=== PATIENT | female | born 1985 | race Caucasian/White ===

== ENCOUNTER 2018-07-28 08:11 | Emergency (ER) | payer MEDICAID ==
[2018-07-28 08:33] VITALS: BP 118/74
--- NOTE | 2018-07-28 08:57 | EDM.PDOC ---
ED HPI GENERAL MEDICAL PROBLEM - General Chief Complaint: [facility]IMAL [facility]ER Problem Stated Complaint: CAME OPEN Time Seen by Provider: 07/28/18 08:30 Source of Information: Reports: Patient, Family History Limitations: Reports: No Limitations - History of Present Illness INITIAL COMMENTS - FREE TEXT/NARRATIVE: 32-year-old female had a 4 days ago, lauren removed yesterday at a postoperative visit and overnight the wound opened up and started bleeding slightly. She called her surgical department in [place] where she had her surgery and she was told to come to the emergency room. Onset: Unknown/Unsure (Wound opened sometime overnight) Lower Abdomen Pain Score (Numeric/FACES): 7 - Related Data Allergies Allergy/AdvReac Type Severity Reaction Status Date / Time adhesive tape Allergy Blisters Verified 05/24/16 11:00 morphine Allergy Swelling Verified 05/24/16 11:00 Sulfa (Sulfonamide Allergy Rash Verified 05/24/16 11:00 Antibiotics) Home Meds: Home Meds Acetaminophen/Butalbital/Caff [Fioricet 325-50-40 MG] 1 each PO ASDIRECTED PRN 05/03/16 [History] Pnv No.95/Ferrous Fum/Folic AC [ Caplet] 1 each PO DAILY 07/28/18 [ History] Past Medical History - Past Health History Medical/Surgical History: Denies Medical/Surgical History Other HEENT History: ear infections Other Cardiovascular History: WPW Other Gastrointestinal History: exploratoy lap ANIMAL KILLER History: Reports: Other ANIMAL KILLER History: ovarian cysts - Past Surgical History Other Cardiovascular Surgeries/Procedures: had an ablation for WPW states "it didn't work" Female Surgical History: Reports: Section Social & Family History - Tobacco Use Smoking Status *Q: Current Every Day Smoker Years of Tobacco use: 12 Packs/Tins Daily: 0.5 - Caffeine Use Caffeine Use: Reports: Soda - Recreational Drug Use Recreational Drug Use: No ED ROS GENERAL - Review of Systems Review Of Systems: See Below Constitutional: Denies: Fever, Chills Respiratory: Denies: Shortness of Breath GI/Abdominal: Reports: Abdominal Pain (Some pain around the incision). Denies: Nausea, Vomiting Skin: Reports: Bruising (Perioperative bruising) ED EXAM, SKIN/RASH Exam: See Below Exam Limited By: No Limitations General Appearance: Alert, No Apparent Distress Respiratory/Chest: No Respiratory Distress GI/Abdominal: Other (The transverse surgical incision is open, there is some bruising just above the incision but no erythema.) Skin: Warm, Dry, Other (The wound was opened and a few clots removed and the wound clean. It was then stapled closed per the recommendations of her ANIMAL KILLER surgeon.) Course - Vital Signs Last Recorded V/S: Last Vital Signs Temp 99.8 F 07/28/18 08:32 Pulse 83 07/28/18 08:32 Resp 16 07/28/18 08:32 BP 118/74 07/28/18 08:32 Pulse Ox 98 07/28/18 08:32 - Re-Assessments/Exams Free Text/Narrative Re-Assessment/Exam: 07/28/18 08:55 After phone consultation with Dr. Marc, her ANIMAL KILLER surgeon, he recommended replacing the lauren. The wound was cleaned, there were a few small clots removed and then using nurse assistance to invert the edges lauren were replaced under sterile conditions. I recommended she call ANIMAL KILLER on Sunday to discuss her recheck in the next 3-5 days. She can return sooner if there is concerns of infection. Departure - Departure Time of Disposition: :09 Disposition: Home, Self-Care 01 Condition: Good Clinical Impression: Wound dehiscence, , condition - Discharge Information Instructions: Wound Dehiscence Referrals: Chiara Person PA [Primary Care Provider] - Forms: ED Department Discharge Care Plan Goals: Continue keeping the wound clean and protected, and call ANIMAL KILLER on Sunday to discuss a recheck appointment time. Return sooner if concerns of infection.
== END 2018-07-28 09:10 | disposition home or self-care (01) ==
LOC: JP.ED 08:11
DX: O90.0 Disruption of cesarean delivery wound (principal); O99.335 Smoking (tobacco) complicating the puerperium; F17.210 Nicotine dependence, cigarettes, uncomplicated; Z88.5 Allergy status to narcotic agent; Z88.2 Allergy status to sulfonamides; Z91.09 Other allergy status, other than to drugs and biological substances
CPT/HCPCS: 99283

== ENCOUNTER 2018-09-03 08:12 | Day surgery (SDC) | payer MEDICAID ==
[~2018-09-03 08:12] MED LIST: Bupivacaine 0.5%/EPINEPHrine 1:200,000 50 ML MDV ONE
[2018-09-03] MEDS ORDERED: Rocuronium 50 MG/5 ML Vial ONE (08:15)
[2018-09-03] MEDS ORDERED: Midazolam 1 MG/ML 2 ML SDV ONE (08:15)
[2018-09-03] MEDS ORDERED: Scopolamine 1.5 MG Transdermal Patch TOP ONE (08:15)
[2018-09-03] MEDS ORDERED: Acetaminophen 500 MG Tab PO ONE (08:15)
[2018-09-03] MEDS ORDERED: fentaNYL 250 MCG/5 ML SDV ONE (08:15)
[2018-09-03] MEDS ORDERED: Albuterol/Ipratropium 3.0-0.5 MG/3 ML Neb Soln NEB ONE (08:15)
[2018-09-03] MEDS ORDERED: Neostigmine Methylsulfate 1 MG/ML 5 ML Syringe ONE (08:15)
[2018-09-03] MEDS ORDERED: cefOXitin 2 GM in Sodium Chloride 0.9% 50 ML IV ONE (08:15)
[2018-09-03] MEDS ORDERED: Ondansetron 4 MG/2 ML SDV ONE (08:15)
[2018-09-03] MEDS ORDERED: Dexamethasone 4 MG/ML SDV ONE (08:15)
[2018-09-03] MEDS ORDERED: Dextrose 5%-Lactated Ringers 1,000 ML IV SCH (08:15)
[2018-09-03] MEDS ORDERED: Propofol 200 MG/20 ML SDV ONE (08:15)
[2018-09-03] MEDS ORDERED: Glycopyrrolate 0.2 MG/ML 5 ML MDV ONE (08:15)
[2018-09-03] MEDS ORDERED: Naloxone 0.4 MG/ML SDV ONE (08:23)
[2018-09-03] MEDS ORDERED: Ketamine 500 MG/5 ML MDV IV SCH (10:00)
[2018-09-03] MEDS ORDERED: HYDROmorphone 0.5 MG/0.5 ML Syringe IVPUSH PRN (12:03)
[2018-09-03] MEDS ORDERED: HYDROmorphone 1 MG/ML Syringe IV PRN (12:03)
[2018-09-03] MEDS ORDERED: Ondansetron 4 MG/2 ML SDV IVPUSH PRN (12:05)
[2018-09-03] MEDS ORDERED: Cyclobenzaprine 10 MG Tab PO PRN (12:12)
[2018-09-03] MEDS ORDERED: diphenhydrAMINE 25 MG Cap PO PRN (12:13)
[2018-09-03] MEDS: Acetaminophen/HYDROcodone 325-5 MG Tab PO PRN ×4 (12:14→21:48)
[2018-09-03] MEDS ORDERED: Pantoprazole 40 MG Vial IVPUSH SCH (14:00)
[2018-09-03] MEDS: Escitalopram 20 MG Tab PO SCH (14:22)
[2018-09-03] MEDS: cefOXitin 2 GM in Sodium Chloride 0.9% 50 ML IV SCH ×2 (15:19→21:48)
[2018-09-03] MEDS ORDERED: diphenhydrAMINE 25 MG Cap PO ONE (21:30)
[2018-09-04] MEDS: cefOXitin 2 GM in Sodium Chloride 0.9% 50 ML IV SCH (03:40)
[2018-09-04] MEDS: Acetaminophen/HYDROcodone 325-5 MG Tab PO PRN ×3 (03:40→11:19)
[2018-09-04] MEDS ORDERED: Mometasone Furoate Powder 220 MCG/Puff 14 Dose Inhaler INH SCH (07:30)
[2018-09-04 07:52] VITALS: BP 114/66; PULSE 61
[2018-09-04] MEDS: Escitalopram 20 MG Tab PO SCH (09:24)
--- NOTE | 2018-09-04 09:53 | DISCH ---
ADMISSION DIAGNOSES: 1. Chronic biliary dyskinesia. 2. Right upper quadrant abdominal pain. 3. Status post Jacob-en-Y gastric bypass surgery. 4. Unspecified surgical malabsorption. 5. B12 deficiency. DISCHARGE DIAGNOSIS: Laparoscopic cholecystectomy for biliary dyskinesia. Date of surgery: 09/03/2018. Surgeon: Ernesto Mishra MD. HISTORY: Papito Leonardo is a 32-year-old female with right upper quadrant abdominal pain, postprandial nausea and bloating. After preoperative evaluation and discussion of possible risks and possible complications, she wished to proceed with surgical procedure. HOSPITAL COURSE: Papito had her surgery on 09/03/2018. She had no operative complications and she was able to be discharged to home on 09/04/2018. PHYSICAL EXAMINATION: GENERAL: Papito Leonardo is a 32-year-old female. Alert, orientated. VITAL SIGNS: Height is 5 feet 3 inches, weight is 266 pounds, BMI is 47.2. TPR 97.4, 61, 18, blood pressure is 114/66. HEENT: Negative. NECK: Supple. HEART: Regular rate and rhythm. LUNGS: Clear. ABDOMEN: Dressings dry and intact. LOR drain will be discontinued, draining a light red drainage. Abdominal binder is on. EXTREMITIES: Without peripheral edema. DISPOSITION: Discharged to home. CONDITION: Stable and improving. FOLLOWUP APPOINTMENT: Coty Rodriguez PA-C, on 09/11/2018 at 10 a.m. HOME MEDICATIONS: [place] 5/325 mg one q.6 hours p.r.n. pain, #28. She is to resume her home medication of Fioricet 325/50/40 one p.r.n. headache; ascorbic acid 500 mg daily; B12 1000 mcg oral daily; Flexeril 10 mg oral daily; Lexapro 20 mg oral daily; ferrous sulfate 325 mg oral daily; Arnuity Ellipta 100 mcg inhalation daily; multivitamin one daily; caplet one daily; Benadryl 50 mg oral at bedtime. DIET: Usual diet as tolerated. Drink 8 to 10 glasses of water a day. ACTIVITY: No lifting greater than 10 pounds for 2 weeks. Walk at least 6 times daily. Driving: Do not drive for 1 week and while on pain medication. May shower. DISCHARGE INSTRUCTIONS: Notify provider if any fever, increased pain, swelling, redness, nausea, vomiting. Keep site clean and dry. Wear abdominal binder for 2 weeks as needed. Use incentive spirometer 10 times every hour while awake for 1 week.
[2018-09-04] MEDS ORDERED: Pantoprazole 40 MG Delayed-Release Granules 1 Packet PO SCH (16:30)
--- NOTE | 2018-09-09 13:08 | OR ---
DATE OF PROCEDURE: 09/03/2018 PREOPERATIVE DIAGNOSIS: Biliary dyskinesia. POSTOPERATIVE DIAGNOSES: 1. Biliary dyskinesia. 2. Incarcerated umbilical hernia. OPERATIVE PROCEDURE: Diagnostic laparoscopy with, 1. Laparoscopic cholecystectomy (84455). 2. Repair of incarcerated umbilical hernia (54908). ANESTHESIA: General. INDICATION FOR PROCEDURE: This is a 32-year-old presenting with some ongoing upper abdominal pain. A CCK-stimulated HIDA scan was obtained which showed normal ejection fraction remarkably, but the CCK injection caused a quite exact reproduction of the patient's episodes of upper abdominal pain and nausea, and given this, she is to undergo a laparoscopic cholecystectomy. Potential risks of the procedure including bleeding, infection, injury to underlying viscera, possible persistence of the symptoms postoperatively were all reviewed and the patient wishes to proceed. DETAILS OF PROCEDURE: The patient was taken to the operating room, and after general endotracheal anesthesia was induced, the abdomen was prepped and draped. Initially examination of the umbilical area showed the fairly broad-based nonreducible umbilical hernia. Transverse subumbilical incision was made and the peritoneal cavity was then entered after dissection down to the hernia sac. The defect easily admitted the 12 mm trocar at the fascia level and the balloon inflated to 15 mmHg pressure with CO2. Following this, a 12 mm epigastric trocar was placed along with a 5 mm right upper quadrant trocar and the abdomen examined. As expected, the patient was having distended stomach, edematous appearing gallbladder. No other specific abnormalities were noted. Gallbladder retracted anteriorly and laterally and dissection began on the gallbladder neck with Harmonic scalpel and continued around the gallbladder neck and cystic duct junction. The gallbladder neck and cystic duct junction were then well delineated as was the adjacent cystic artery. Both structures were clipped 3 times proximally and once distally and divided. The gallbladder was then dissected off the gallbladder bed using Harmonic scalpel and delivered through the epigastric trocar site. The gallbladder had small amount of cholesterol within in and a "strawberry gallbladder" mucosal appearance consistent with mucosal cholesterolosis. The area of dissection was inspected. Drain was felt not to be necessary at this point, and the camera port was then brought out to the epigastric site. The umbilical hernia was then repaired with a series of 0 Ethibond sutures placed with the laparoscopic suture passer. They were placed such that the closure appeared with a transverse orientation. Once these were in place, the epigastric trocar site was also closed with 0 Vicryl stitch and the trocars were removed. The peritoneal cavity was deflated and incisions closed with 4-0 Vicryl skin stitch. The patient was taken to the recovery room in satisfactory condition. There were no evident complications. Ernesto Mishra MD /[id number]
== END 2018-09-04 12:01 | disposition home or self-care (01) ==
LOC: JP.SDS 08:12 → JP.MS 11:30 → JP.SDS 09-04 12:01
PROVIDERS: ATTEND Surgery
DX: K81.1 Chronic cholecystitis (principal); K42.0 Umbilical hernia with obstruction, without gangrene; I45.6 Pre-excitation syndrome; J45.909 Unspecified asthma, uncomplicated; E53.8 Deficiency of other specified B group vitamins; E55.9 Vitamin D deficiency, unspecified; K91.2 Postsurgical malabsorption, not elsewhere classified; F32.9 Major depressive disorder, single episode, unspecified; E66.01 Morbid (severe) obesity due to excess calories; Z68.42 Body mass index [BMI] 45.0-49.9, adult; Z98.84 Bariatric surgery status; Z79.51 Long term (current) use of inhaled steroids; Z79.899 Other long term (current) drug therapy
CPT/HCPCS: 36415; 47562; 81025; 82247; 84075; 85025; 94640; A9270; C9113; J0171; J0694; J1100; J2310; J2405; J2704; J2710; J2795; J3010; J3490; J7042; J7050; 88302; 88304; J2250; J7620-GY

== ENCOUNTER 2019-02-25 05:26 | Day surgery (SDC) | payer MEDICAID ==
[2019-02-25] MEDS ORDERED: Dextrose 5%-Lactated Ringers 1,000 ML IV SCH (06:30)
[2019-02-25] MEDS ORDERED: fentaNYL 100 MCG/2 ML SDV ONE (07:07)
[2019-02-25] MEDS ORDERED: Midazolam 1 MG/ML 2 ML SDV ONE (07:07)
[2019-02-25] MEDS ORDERED: Propofol 200 MG/20 ML SDV ONE (07:07)
[2019-02-25 08:49] VITALS: BP 90/49; PULSE 82
--- NOTE | 2019-03-06 13:58 | OR ---
DATE OF PROCEDURE: 02/25/2019 SURGEON: Ernesto Mishra MD PREOPERATIVE DIAGNOSIS: Right upper quadrant pain with MRI suggestive of possible colitis involving transverse colon. POSTOPERATIVE DIAGNOSIS: Colonoscopy showing no gross abnormalities. OPERATIVE PROCEDURE: Flexible colonoscopy with random biopsies to rule out microscopic colitis. ANESTHESIA: IV sedation. INDICATIONS FOR PROCEDURE: The patient is status post Jacob-en-Y gastric bypass in 2010. She underwent a cholecystectomy on 09/03/2018. Initially, she did well, but now she is having some recurrent symptoms suggestive of biliary disease or other pathology in the right upper quadrant. An MRI was obtained, which did not show any biliopancreatic pathology, but it was suggestive of possible colitis involving the transverse colon. She is to undergo colonoscopy with biopsies as indicated at this time. Potential risks including bleeding and perforation were discussed, and the patient wishes to proceed. DETAILS OF PROCEDURE: The patient was taken to the operating room and placed in a left lateral decubitus position. IV sedation was administered, after which the initial digital rectal exam was performed and was unremarkable. Colonoscope was eventually passed to the cecum. Retroflexion within the rectum, which revealed uncomplicated hemorrhoidal columns. To the level of the cecum, no abnormalities were noted, particularly there was no gross inflammation or other problems identified in the area of the transverse colon or elsewhere on the examination. Multiple random biopsies were obtained from the area of the transverse colon to rule out microscopic colitis. No bleeding from the biopsy sites was seen and procedure was then concluded. The patient was taken to the recovery room in satisfactory condition. If the patient's symptoms persist, one might consider a diagnostic laparoscopy to rule out problems of adhesions and/or a gastroenterology referral. It is possible though with the sphincter of Oddi dysfunction, that would be a quite difficult diagnosis to establish given her gastric bypass status and if that consideration was given, she should probably be referred to somewhere such as [facility] with good experience of transgastric access for ERCP status post gastric bypass. Ernesto Mishra MD /[id number]
== END 2019-02-25 08:55 | disposition home or self-care (01) ==
LOC: JP.SDS 05:26
PROVIDERS: ATTEND Surgery
DX: R10.11 Right upper quadrant pain (principal); K64.9 Unspecified hemorrhoids; E66.01 Morbid (severe) obesity due to excess calories; Z68.43 Body mass index [BMI] 50.0-59.9, adult; Z98.84 Bariatric surgery status; Z90.49 Acquired absence of other specified parts of digestive tract
CPT/HCPCS: 45380; 88305; J2250; J2704; J3010; J7121

== ENCOUNTER 2019-06-02 06:11 | Day surgery (SDC) | payer MEDICAID ==
[2019-06-02] MEDS ORDERED: Cyanocobalamin (Vitamin B12) 1,000 MCG/ML SDV IM ONE (06:30)
[2019-06-02] MEDS ORDERED: Lactated Ringers 1,000 ML IV ONE (06:30)
[2019-06-02] MEDS ORDERED: Glycopyrrolate 0.2 MG/ML 2 ML SDV IVPUSH ONE (07:00)
[2019-06-02] MEDS ORDERED: Midazolam 1 MG/ML 2 ML SDV ONE (07:06)
[2019-06-02] MEDS ORDERED: Propofol 200 MG/20 ML SDV ONE (07:06)
[2019-06-02] MEDS ORDERED: fentaNYL 100 MCG/2 ML SDV ONE (07:06)
[2019-06-02] MEDS ORDERED: MVI, Adult with Vitamin K 10 ML, Thiamine 200 MG, Chromium/Copper/Mang/Selen/Zn 1 ML in... IV ONE ×4 (07:30)
[2019-06-02] MEDS ORDERED: Acetaminophen 325 MG Tab PO ONE (08:18)
[2019-06-02] MEDS ORDERED: Acetaminophen 500 MG Tab PO ONE (08:19)
[2019-06-02] MEDS ORDERED: diphenhydrAMINE 50 MG/ML SDV IVPUSH PRN (08:31)
[2019-06-02] MEDS ORDERED: Famotidine 20 MG/2 ML SDV IVPUSH PRN (08:31)
[2019-06-02] MEDS ORDERED: Hydrocortisone Sodium Succinate 100 MG/2 ML SDV IVPUSH PRN (08:31)
[2019-06-02] MEDS ORDERED: Sodium Chloride 0.9% 1,000 ML IV SCH ×2 (08:45→10:30)
[2019-06-02 11:00] VITALS: BP 140/58; PULSE 88
--- NOTE | 2019-06-04 14:24 | OR ---
DATE OF PROCEDURE: 06/02/2019 SURGEON: Ernesto Mishra MD PREOPERATIVE DIAGNOSIS: Persistent epigastric pain. POSTOPERATIVE DIAGNOSIS: Persistent marginal ulcer refractory to ongoing proton pump inhibitor use. OPERATIVE PROCEDURES: Upper gastrointestinal endoscopy with biopsies of gastric pouch for CLOtest (81249). ANESTHESIA: IV sedation. INDICATION FOR PROCEDURE: This is a 33-year-old female who, in 2010, had a Jacob-en-Y gastric bypass performed by Dr. Segovia. She presents now with ongoing epigastric pain despite being on b.i.d. omeprazole dosing. The plan is to proceed with upper GI endoscopy with biopsies as indicated. Potential risks including bleeding and perforation were discussed, and the patient wishes to proceed. DETAILS OF PROCEDURE: The patient was taken to the operating room and placed in a left lateral decubitus position. IV sedation was administered, after which the upper GI endoscope was passed orally through the length of the esophagus, into the gastric pouch and from there through the gastrojejunostomy roughly 20 cm into the Jacob limb. Findings included normal hypopharynx, larynx, upper esophageal sphincter, and esophageal body. At the EG junction, no significant inflammation was noted. The patient was, however, noted to have a very large gastric pouch. This was measuring 9 cm from the gastrojejunostomy to the mucosal EG junction. This was associated with some persistent marginal ulcer formation in the area of the jejunum medially adjacent to the gastrojejunostomy. Beyond that, the findings normalized. At this point, biopsies were obtained from the gastric pouch and sent for CLOtest for H pylori. Minimal bleeding from the biopsy sites was seen, and the procedure then concluded. The patient was taken to the recovery room in satisfactory condition. Following the patient recovering from anesthesia, the situation was discussed with the patient and mother, and they wished to proceed with a partial gastrectomy on 06/05/2019. This most likely can be done laparoscopically. The patient's underlying problem at this point has to do with having a very large gastric pouch, which was not providing enough despite proton pump inhibitor as detailed above and persistent ulcer problems, and the solution of that is to remove most of the remaining stomach in contact with the Jacob- en-Y anastomosis and reconstruct that anastomosis as well. The potential risks were reviewed with the patient and will be reviewed again preoperatively, and she wishes to proceed. Ernesto Mishra MD /[id number]
== END 2019-06-02 11:12 | disposition home or self-care (01) ==
LOC: JP.SDS 06:11
PROVIDERS: ATTEND Surgery
DX: K28.9 Gastrojejunal ulcer, unspecified as acute or chronic, without hemorrhage or perforation (principal); T47.1X5A Adverse effect of other antacids and anti-gastric-secretion drugs, initial encounter; J45.909 Unspecified asthma, uncomplicated; E66.01 Morbid (severe) obesity due to excess calories; Z79.899 Other long term (current) drug therapy; Z98.84 Bariatric surgery status; Z93.1 Gastrostomy status; Z68.43 Body mass index [BMI] 50.0-59.9, adult
CPT/HCPCS: 43239; 81025; 87081; A9270; J2250; J2704; J3010; J3411; J3420; J3490; J7030; J7050; J7120; Q0138

== ENCOUNTER 2019-06-05 05:34 | Inpatient (IN) | payer MEDICAID ==
[2019-06-05] MEDS ORDERED: Acetaminophen 500 MG Tab PO ONE (05:45)
[2019-06-05] MEDS ORDERED: Gabapentin 300 MG Cap PO ONE (05:45)
[2019-06-05] MEDS ORDERED: Scopolamine 1.5 MG Transdermal Patch TOP ONE (06:02)
[2019-06-05] MEDS: Dextrose 5%-Lactated Ringers 1,000 ML IV SCH ×4 (06:25→21:40)
[2019-06-05] MEDS ORDERED: cefOXitin 2 GM in Sodium Chloride 0.9% 50 ML IV ONE (06:45)
[2019-06-05] MEDS ORDERED: Levalbuterol HCl 1.25 MG/3 ML Neb NEB ONE (07:00)
[2019-06-05] MEDS ORDERED: Succinylcholine 200 MG/10 ML MDV ONE (07:31)
[2019-06-05] MEDS ORDERED: Rocuronium 50 MG/5 ML Vial ONE (07:31)
[2019-06-05] MEDS ORDERED: Neostigmine Methylsulfate 1 MG/ML 5 ML Syringe ONE (07:31)
[2019-06-05] MEDS ORDERED: Glycopyrrolate 0.2 MG/ML 5 ML MDV ONE (07:31)
[2019-06-05] MEDS ORDERED: Propofol 200 MG/20 ML SDV ONE (07:31)
[2019-06-05] MEDS ORDERED: Ondansetron 4 MG/2 ML SDV ONE (07:31)
[2019-06-05] MEDS ORDERED: Dexamethasone 4 MG/ML SDV ONE (07:31)
[2019-06-05] MEDS ORDERED: fentaNYL 250 MCG/5 ML SDV ONE ×2 (07:32→08:10)
[2019-06-05] MEDS ORDERED: Ketamine 50 MG in Sodium Chloride 0.9% 49.5 ML IV SCH (07:45)
[2019-06-05] MEDS ORDERED: Ketamine 500 MG/5 ML MDV IV SCH (07:45)
[2019-06-05] MEDS ORDERED: Magnesium Sulfate 6.5 GM in Sodium Chloride 0.9% 250 ML IV ONE (07:45)
[2019-06-05] MEDS: cefOXitin 2 GM Vial ONE ×2 (08:48→09:20)
[2019-06-05] MEDS ORDERED: Labetalol 20 MG/4 ML Syringe ONE (09:03)
[2019-06-05] MEDS ORDERED: hydrOXYzine HCL 100 MG/2 ML SDV IM ONE (09:49)
[2019-06-05] MEDS ORDERED: Lactated Ringers 1,000 ML ONE (10:33)
[2019-06-05] MEDS ORDERED: Ondansetron 4 MG/2 ML SDV IVPUSH PRN ×2 (10:55→11:26)
[2019-06-05] MEDS ORDERED: Calcium Gluconate 10% 1 GM/10 ML SDV IVPUSH PRN (11:26)
[2019-06-05] MEDS ORDERED: Acetaminophen 500 MG Tab PO PRN (11:26)
[2019-06-05] MEDS ORDERED: diphenhydrAMINE 50 MG/ML SDV IVPUSH PRN (11:26)
[2019-06-05] MEDS ORDERED: Metoclopramide 10 MG/2 ML SDV IVPUSH PRN (11:26)
[2019-06-05] MEDS ORDERED: hydrOXYzine HCL 100 MG/2 ML SDV IM PRN (11:26)
[2019-06-05] MEDS ORDERED: Labetalol 20 MG/4 ML Syringe IVPUSH PRN (11:26)
[2019-06-05] MEDS ORDERED: traZODone 50 MG Tab PO PRN (11:29)
[2019-06-05] MEDS ORDERED: Acetaminophen 500 MG Tab PO SCH (11:30)
[2019-06-05] MEDS: HYDROmorphone 1 MG/ML Syringe IV PRN ×3 (11:34→19:07)
[2019-06-05] MEDS ORDERED: XOPENEX HFA INHALER INH PRN (12:03)
[2019-06-05] MEDS: Acetaminophen 500 MG Tab PO SCH ×2 (13:27→21:36)
[2019-06-05] MEDS: Gabapentin 250 MG/5 ML Solution ML 470 ML Bottle PO SCH ×2 (13:28→21:37)
[2019-06-05] MEDS: cefOXitin 2 GM in Sodium Chloride 0.9% 50 ML IV SCH ×2 (13:28→19:07)
[2019-06-05] MEDS ORDERED: Pantoprazole 40 MG Vial IVPUSH SCH (14:00)
[2019-06-05] MEDS: oxyCODONE 5 MG Tab PO PRN ×2 (15:52→23:20)
[2019-06-05] MEDS: Heparin Sodium 5,000 Units/ML Vial SUBCUT SCH (15:54)
[2019-06-05] MEDS ORDERED: MVI, Adult with Vitamin K 10 ML, Thiamine 200 MG, Chromium/Copper/Mang/Selen/Zn 1 ML in... IV SCH ×4 (16:00)
[2019-06-05] MEDS: HYDROmorphone 0.5 MG/0.5 ML Syringe IVPUSH PRN (16:26)
[2019-06-05] MEDS: Cyclobenzaprine 10 MG Tab PO PRN (18:53)
[2019-06-06] MEDS: cefOXitin 2 GM in Sodium Chloride 0.9% 50 ML IV SCH ×2 (01:46→07:32)
[2019-06-06] MEDS: HYDROmorphone 0.5 MG/0.5 ML Syringe IVPUSH PRN (02:31)
[2019-06-06] MEDS: Dextrose 5%-Lactated Ringers 1,000 ML IV SCH ×3 (03:51→14:44)
[2019-06-06] MEDS ORDERED: Iopamidol 612 MG/ML 50 ML SDV PO ONE (03:51)
[2019-06-06] MEDS: Heparin Sodium 5,000 Units/ML Vial SUBCUT SCH ×2 (03:53→15:58)
[2019-06-06] MEDS: oxyCODONE 5 MG Tab PO PRN ×3 (06:13→19:13)
[2019-06-06] MEDS: Acetaminophen 500 MG Tab PO SCH ×3 (06:13→21:05)
[2019-06-06] MEDS ORDERED: Ondansetron 4 MG Tab.DIS PO PRN (07:17)
[2019-06-06] MEDS: Cyclobenzaprine 10 MG Tab PO PRN (07:33)
[2019-06-06] MEDS ORDERED: hydrOXYzine HCl 25 MG Tab PO PRN (07:37)
[2019-06-06] MEDS: Bisacodyl 5 MG Tab PO SCH ×2 (08:55→21:05)
[2019-06-06] MEDS: Celecoxib 200 MG Cap PO SCH ×2 (08:55→21:05)
[2019-06-06] MEDS: Docusate Sodium 100 MG Cap PO SCH ×2 (08:55→21:05)
[2019-06-06] MEDS: Pantoprazole 40 MG Delayed-Release Granules 1 Packet PO SCH (08:56)
[2019-06-06] MEDS: SCOPOLAMINE PATCH CHECK TOP SCH (08:56)
[2019-06-06] MEDS: Vilazodone 20 MG Tab PO SCH (08:56)
[2019-06-06] MEDS: Gabapentin 250 MG/5 ML Solution ML 470 ML Bottle PO SCH ×3 (09:03→21:05)
[2019-06-06] MEDS ORDERED: Sodium Ferric Gluconate Cmplex 250 MG in Sodium Chloride 0.9% 100 ML IV ONE (10:00)
--- NOTE | 2019-06-06 11:01 | PN ---
DATE OF SERVICE: 06/06/2019 SUBJECTIVE: Papito is postoperative day #1. Upper GI this morning was normal. She has been afebrile. Oral intake 480, urine output 3800. LOR put out 85 mL of a light red drainage. REVIEW OF SYSTEMS: Remainder of review of systems negative for any pertinent positives and negatives. OBJECTIVE: GENERAL: Papito Leonardo is a 33-year-old female. She is alert and orientated. VITAL SIGNS: TPR at 0700, 97.8; 72; 16; blood pressure 119/76. HEENT: Negative. NECK: Supple. HEART: Regular rate and rhythm. LUNGS: Clear. ABDOMEN: Dressings dry and intact. Abdominal binder is on. LOR drain as above. EXTREMITIES: SCDs are on and there is no peripheral edema. ASSESSMENT: Laparoscopic partial gastrectomy with Jacob-en-Y gastrojejunostomy, small bowel resection at the jejunojejunostomy, secondary enterostomy, and reestablish of the Jacob-en-Y small bowel anatomy for persistent morbid obesity secondary to large gastric pouch and strictures at the jejunojejunostomy and hepatomegaly. Date of surgery: 06/05/2019. Surgeon: Ernesto Mishra MD. PLAN: 1. Communication order written: To have 3 med cups at bedside and to drink 1 every 20 minutes or 3 per hour and record at bedside to make sure the patient gets adequate fluids. 2. Dressing off, may shower. 3. Step 2 gastric bypass diet with no cereal. 4. Decrease IV to 100 mL per hour. 5. Dulcolax 10 mg tablets p.o. b.i.d. Scheduled stop when the patient has a bowel movement. 6. Colace 100 mg p.o. b.i.d. 7. Zofran ODT 4 mg every 4 hours p.r.n. nausea. 8. Discontinue IV Dilaudid. 9. Discontinue continuous pulse ox and cardiac monitoring. 10.Continue good pulmonary toilet. 11.We will evaluate p.r.n. or in a.m. Coty Rodriguez PA-C /[id number]
--- NOTE | 2019-06-06 14:15 | CR ---
UGI Limited HISTORY: Postbariatric surgery FINDINGS: Patient swallowed water-soluble contrast. Upright views of the abdomen show no evidence of extravasation or obstruction. IMPRESSION: Status post bariatric surgery No extravasation or obstruction seen
[2019-06-06] MEDS ORDERED: MVI, Adult with Vitamin K 10 ML, Thiamine 200 MG, Chromium/Copper/Mang/Selen/Zn 1 ML in... IV SCH ×4 (16:00)
[2019-06-07] MEDS: oxyCODONE 5 MG Tab PO PRN ×2 (02:24→08:49)
[2019-06-07] MEDS: Acetaminophen 500 MG Tab PO SCH (05:01)
[2019-06-07] MEDS: Heparin Sodium 5,000 Units/ML Vial SUBCUT SCH (05:01)
[2019-06-07 07:37] VITALS: BP 127/85; PULSE 75
[2019-06-07] MEDS: Celecoxib 200 MG Cap PO SCH (08:47)
[2019-06-07] MEDS: Gabapentin 250 MG/5 ML Solution ML 470 ML Bottle PO SCH (08:47)
[2019-06-07] MEDS: Docusate Sodium 100 MG Cap PO SCH (08:48)
[2019-06-07] MEDS: Pantoprazole 40 MG Delayed-Release Granules 1 Packet PO SCH (08:48)
[2019-06-07] MEDS: Vilazodone 20 MG Tab PO SCH (08:48)
[2019-06-07] MEDS: Bisacodyl 5 MG Tab PO SCH (08:48)
[2019-06-07] MEDS: SCOPOLAMINE PATCH CHECK TOP SCH (08:48)
[2019-06-07] MEDS ORDERED: Cyanocobalamin (Vitamin B12) 1,000 MCG/ML SDV IM ONE (09:00)
--- NOTE | 2019-06-09 14:07 | OR ---
DATE OF PROCEDURE: 06/05/2019 SURGEON: Ernesto Mishra MD PREOPERATIVE DIAGNOSES: 1. Persistent marginal ulcer secondary to large gastric pouch. 2. 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 3. Marked hepatomegaly. OPERATIVE PROCEDURES: Diagnostic laparoscopy with: 1. Partial gastrectomy with Liane-en-Y gastrojejunostomy (81730). 2. Small-bowel resection at jejunojejunostomy (22080). 3. Secondary enteroenterostomy to restore small bowel Liane-en-Y anatomy (23819). 4. Hugo-Cut needle liver biopsy (77284). ANESTHESIA: General. CABLE INSTALLER REPAIRER: Coty Rodriguez PA-C. INDICATIONS FOR PROCEDURE: The patient presented with persistent marginal ulcer, despite ongoing medical management. This was related to a very large gastric pouch measuring around 9 cm from the gastrojejunostomy of the esophagogastric junction. This procedure [place] [address] Segovia. Plan is to proceed with a diagnostic laparoscopy and partial gastrectomy, removing most of the remaining pouch, with reconstruction with Liane-en- Y gastrojejunostomy. I will also look at the small bowel to see if there is anything that is problematic in that area. Potential risks of the procedure including bleeding, infection, injury to underlying viscera, leaks from GI tract closures, as well as possibility of cardiopulmonary, septic, or hemorrhagic complications leading to were all discussed, and the patient wishes to proceed. DETAILS OF PROCEDURE: The patient was taken to the operating room, placed in a supine position. After general endotracheal anesthesia was induced, she was converted to a lithotomy position and the abdomen prepped and draped. At 15 cm inferior and 5 cm left of the xiphoid process, a transverse incision was made and the peritoneal cavity entered under direct vision with an Optiview trocar, inflated to 15 mmHg pressure with CO2. Laparoscope was then reinserted. No underlying trocar insertion site injuries were seen. Following this, 5 additional trocars were placed across the upper and mid abdomen, and bilateral transversus abdominis plane blocks were placed. The liver was retracted anteriorly, and some adhesions between the area of the gastric pouch and gastrojejunostomy were taken down with Harmonic Scalpel. This confirmed a very large gastric pouch. Initially, the dissection behind the Liane limb more or less adjacent to the gastrojejunostomy was accomplished and that area divided with the SAGAR stapler. This then allowed proximal dissection of the gastrojejunostomy and gastric pouch in a cephalad direction. Once this was freed up enough, then a small remaining gastric pouch could be constructed. That was accomplished with a SAGAR black load, and the specimen consisting of the gastrojejunostomy and most of the previous pouch was set off to the side and delivered from the field later during the case. The patient was noted to have marked hepatomegaly. Hugo-Cut needle liver biopsies were also obtained from the left lobe of the liver at this point, and minimal bleeding from the biopsy sites was controlled with electrocautery. The Liane limb was then mobilized upward. After lysis of adhesions, it came up to the new gastric pouch without tension. The anvil of a 25 mm EEA stapler was attached to [place] sump type tube, brought down through the mouth and through a small opening in the gastric pouch, allowing the anvil likewise to be pulled down to within the gastric pouch. The divided end of the Liane limb was then opened and main body of the EEA stapler passed several centimeters into the lumen of the small bowel, brought up to the anvil, united with it, thus creating the gastrojejunostomy. Upon removal of the stapler, double donuts of mucosa were noted within it. Small bowel was closed off with a vascular staple line. Gastrojejunostomy was reinforced with 3-0 Vicryl seromuscular stitch, along with fibrin sealant. At the end of the case, a leak test was accomplished with injection of 120 mL of air in the gastric pouch while it was submerged with a cefoxitin-containing saline solution. No leaks were identified at that point. Following the gastrojejunostomy, the small bowel was inspected. The patient was noted to have quite a bit in the way of adhesions in the area of the jejunojejunostomy. This was felt best to be resected and revised. The 3 components of the bowel entering that anastomosis were then divided with SAGAR staplers, as was the underlying mesentery, and that specimen was also later delivered from the field. Initially, the small bowel continuity was established with a [id number] anastomosis between what had been the distal-most biliopancreatic limb and the proximal-most common limb with a [id number] enteroenterostomy with an internal firing of the 60 mm Endo-SAGAR stapler, common opening was then closed transversely with the same stapler, angles anastomosed, and mesenteric defect approximated with some 0 Ethibond sutures. Liane-en-Y anatomy was then re-established with anastomosis between what had been the distal Liane limb and the small bowel roughly 20 cm distal to the initial anastomosis. This was accomplished with same sequence of lauren and closure of the mesenteric defect as outlined with the previous anastomosis as well. At this point, the patient's liane limb was fairly long being around 150 cm, and the new biliopancreatic limb length was around 120 cm, so with the improvement of the patient's gastric pouch size and a calibrated gastrojejunostomy, one would expect some reasonable weight loss from this point forward. The abdomen was irrigated with antibiotic-containing saline solution. No further problems were noted. Single Manjit-Roy drain was then placed adjacent to the gastrojejunostomy and taken up to the area of the splenic fossa. The trocars were then sequentially removed and peritoneal cavity deflated. Incision was closed with some 4-0 Vicryl skin stitch and the drain also affixed with a 4-0 Vicryl stitch. The patient was taken to the recovery room in satisfactory condition. Physician recovery assistant, Coty Rodriguez, played an essential role in assisting in this case, helping to position the patient, retract structures as needed, as well as suturing and cutting sutures when indicated. Her presence improved patient safety and decreased operative time. Ernesto Mishra MD /[id number]
--- NOTE | 2019-06-09 14:10 | DISCH ---
FINAL DIAGNOSES: 1. Persistent marginal ulcer secondary to large gastric pouch. 2. 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 3. Hepatomegaly. 4. History of ethanol abuse. 5. History of hernia repair. 6. Iron-deficiency status. OPERATIVE PROCEDURES: Done on 06/04, diagnostic laparoscopy with: 1. A. Partial gastrectomy with Jacob-en-Y gastrojejunostomy. 2. B. Small-bowel resection of jejunojejunostomy. 3. C. Secondary enteroenterostomy to reestablish small-bowel Jacob-en-Y anatomy. 4. Hugo-Cut needle liver biopsy. Summary this is a 33-year-old presenting with ongoing upper abdominal pain. Workup last week showed a persistent marginal ulcer, status post previous Jacob-en-Y gastric bypass which was associated with a very large gastric pouch likely resulting in the persistence of the ulcer problems. The patient underwent the above operative procedures. Postoperatively, no significant problems were noted. She was iron deficiency status preoperatively and received an infusion postoperatively. She will be discharged home on her usual medications plus oxycodone 5 mg q.6 hours p.r.n., #30, Celebrex 200 mg b.i.d. x2 weeks, and they Tylenol 1000 mg p.o. q. 6 hours p.r.n. She will be following up with Coty Rodriguez at [facility] on 06/16/2019 at 20 and 9 a.m. and instructed to stay on until that time.
== END 2019-06-07 10:55 | disposition home or self-care (01) | DRG 327 ==
LOC: JP.SDS 05:34 → JP.SDSSCHI 05:34 → EDSTATUS 07:15 → JP.MS 09:45
PROVIDERS: ADMIT Surgery; ATTEND Surgery
PROC: 0D164ZA Bypass Stomach to Jejunum, Percutaneous Endoscopic Approach (ICD-10-PCS; principal; 2019-06-05)
PROC: 0DB84ZZ Excision of Small Intestine, Percutaneous Endoscopic Approach (ICD-10-PCS; 2019-06-05)
PROC: 0FB24ZX Excision of Left Lobe Liver, Percutaneous Endoscopic Approach, Diagnostic (ICD-10-PCS; 2019-06-05)
PROC: 0DB64ZZ Excision of Stomach, Percutaneous Endoscopic Approach (ICD-10-PCS; 2019-06-05)
DX: K94.19 Other complications of enterostomy (principal); K91.2 Postsurgical malabsorption, not elsewhere classified; Z68.43 Body mass index [BMI] 50.0-59.9, adult; Y83.8 Other surgical procedures as the cause of abnormal reaction of the patient, or of later complication, without mention of misadventure at the time of the procedure; K28.9 Gastrojejunal ulcer, unspecified as acute or chronic, without hemorrhage or perforation; R16.0 Hepatomegaly, not elsewhere classified; Z79.899 Other long term (current) drug therapy; D64.9 Anemia, unspecified; J45.909 Unspecified asthma, uncomplicated; G43.909 Migraine, unspecified, not intractable, without status migrainosus; Q89.9 Congenital malformation, unspecified; F32.9 Major depressive disorder, single episode, unspecified; M79.7 Fibromyalgia; Z98.84 Bariatric surgery status; M35.7 Hypermobility syndrome; E66.01 Morbid (severe) obesity due to excess calories; Z90.49 Acquired absence of other specified parts of digestive tract; Z90.89 Acquired absence of other organs; Z98.890 Other specified postprocedural states; E50.9 Vitamin A deficiency, unspecified; E53.9 Vitamin B deficiency, unspecified; E53.8 Deficiency of other specified B group vitamins; E55.9 Vitamin D deficiency, unspecified
CPT/HCPCS: 36415; 74240; 74240-26; 86850; 86900; 86901; 93005; 94640; 94762; A9270-GY; C9113; J0171; J0330; J0694; J1100; J1170; J1644; J2405; J2704; J2710; J2795; J2916; J3010; J3410; J3411; J3420; J3475; J3490; J7030; J7050; J7120; J7121; J7612-GY; Q9967

== ENCOUNTER 2019-07-02 18:40 | Emergency (ER) | payer MEDICAID ==
[2019-07-02] MEDS ORDERED: LORazepam 1 MG Tab PO ONE (19:45)
--- NOTE | 2019-07-02 19:49 | EDM.PDOC ---
ED HPI GENERAL MEDICAL PROBLEM - General Chief Complaint: Neurological Problem Stated Complaint: SOB,PASSED OUT Time Seen by Provider: 07/02/19 19:38 Source of Information: Reports: Patient, RN Notes Reviewed History Limitations: Reports: No Limitations - History of Present Illness INITIAL COMMENTS - FREE TEXT/NARRATIVE: 33-year-old female presents emergency department today following a syncopal event happened a couple hours prior she states she was sitting down at the table lost consciousness her head tilted to the side when she awoke she was still sitting at the table did not fall down this was an unwitnessed event except by her children. 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 At this time she feels nauseated and dizzy feels like the room is spinning Chest Pain Score (Numeric/FACES): 3 - Related Data Allergies Allergy/AdvReac Type Severity Reaction Status Date / Time adhesive tape Allergy Blisters Verified 07/02/19 18:55 albuterol Allergy Cannot Verified 07/02/19 18:55 Remember morphine Allergy Swelling Verified 07/02/19 18:55 Sulfa (Sulfonamide Allergy Rash Verified 07/02/19 18:55 Antibiotics) Home Meds: Home Meds Magnesium Oxide [Magnesium] 400 mg PO BEDTIME PRN 02/21/19 [History] traZODone HCl [Trazodone HCl] 25 - 50 mg PO BEDTIME PRN 02/21/19 [History] hydrOXYzine HCL [hydrOXYzine] 25 mg PO TID PRN 02/25/19 [History] Levalbuterol Tartrate [Xopenex HFA] 2 puff IH Q4HR PRN 05/30/19 [History] tiZANidine [Zanaflex] 4 mg PO Q8HR PRN 05/30/19 [History] Vilazodone [Viibryd] 40 mg PO DAILY 06/03/19 [History] Erenumab-Aooe [Aimovig Autoinjector] 140 mg SQ ASDIRECTED 06/05/19 [History] Ascorbic Acid [Vitamin C] 500 mg PO DAILY #0 06/07/19 [Rx] Butalbital/Aspirin/Caffeine [Fiorinal 50-325-40 MG] 1 each PO Q4HR PRN #0 04/04/ 20 [Rx] Cyanocobalamin (Vitamin B12) [Vitamin B12] 1,000 mcg SL DAILY #0 06/07/19 [Rx] Dicyclomine [Bentyl] 10 mg PO QIDACANDBED #0 06/07/19 [Rx] Ferrous Sulfate [Iron] 325 mg PO DAILY #0 06/07/19 [Rx] Gabapentin [Neurontin] 300 mg PO TID #0 06/07/19 [Rx] Multivitamin [Multiple Vitamins] 1 tab PO DAILY #0 06/07/19 [Rx] Omeprazole 20 mg PO BID #0 06/07/19 [Rx] diphenhydrAMINE [Benadryl] 50 mg PO BEDTIME PRN #0 06/07/19 [Rx] Past Medical History HEENT History: Reports: Impaired Vision, Otitis Media Other HEENT History: ear infections Cardiovascular History: Reports: Other (See Below) Other Cardiovascular History: WPW Respiratory History: Reports: Asthma Gastrointestinal History: Reports: Cholelithiasis Other Gastrointestinal History: exploratoy lap COLLEGE SPORTS ASSISTANT History: Reports: Endometriosis, Polycystic Ovaries, Other COLLEGE SPORTS ASSISTANT History: ovarian cysts Musculoskeletal History: Reports: Back Pain, Chronic, Fibromyalgia Neurological History: Reports: Brain Injury, Concussion, Headaches, Chronic, Migraines Psychiatric History: Reports: Anxiety, Depression Endocrine/Metabolic History: Reports: Obesity/BMI 30+ Hematologic History: Reports: Anemia, B12 Deficiency, Iron Deficiency - Infectious Disease History Infectious Disease History: Reports: Chicken Pox - Past Surgical History HEENT Surgical History: Reports: Adenoidectomy, Tonsillectomy Cardiovascular Surgical History: Reports: Other (See Below) Other Cardiovascular Surgeries/Procedures: had an ablation for WPW states "it didn't work" Respiratory Surgical History: Reports: None GI Surgical History: Reports: Bariatric Procedure, Cholecystectomy, Colonoscopy , EGD, Hernia, Abdominal Female Surgical History: Reports: Section, Other (See Below) Other Female Surgeries/Procedures: tubes removed, exploratory surgery for endometriosis Endocrine Surgical History: Reports: None Neurological Surgical History: Reports: None Musculoskeletal Surgical History: Reports: None Social & Family History - Family History Family Medical History: Noncontributory - Tobacco Use Smoking Status *Q: Never Smoker - Caffeine Use Caffeine Use: Reports: None - Recreational Drug Use Recreational Drug Use: No ED ROS GENERAL - Review of Systems Review Of Systems: See Below Constitutional: Reports: No Symptoms HEENT: Reports: No Symptoms Respiratory: Reports: No Symptoms Cardiovascular: Reports: Syncope GI/Abdominal: Reports: Nausea : Reports: No Symptoms Musculoskeletal: Reports: No Symptoms Neurological: Reports: Dizziness ED EXAM, GENERAL - Physical Exam Exam: See Below Exam Limited By: No Limitations General Appearance: Alert, WD/WN, No Apparent Distress Eye Exam: Bilateral Eye: EOMI, Normal Inspection, PERRL Neck: Normal Inspection, Supple, Non-Tender, Full Range of Motion Respiratory/Chest: No Respiratory Distress, Lungs Clear, Normal Breath Sounds, No Accessory Muscle Use, Chest Non-Tender Cardiovascular: Regular Rate, Rhythm, No Murmur GI/Abdominal: Soft, Non-Tender Course - Vital Signs Last Recorded V/S: Last Vital Signs Temp 97.6 F 07/02/19 19:00 Pulse 61 07/02/19 20:58 Resp 21 H 07/02/19 20:58 BP 101/59 L 07/02/19 20:58 Pulse Ox 96 07/02/19 20:58 - Orders/Labs/Meds Orders: Active Orders 24 hr Category Date Time Status Cardiac Monitoring [RC] .As Directed Care 07/02/19 19:43 Active EKG Documentation Completion [RC] ASDIRECTED Care 07/02/19 19:43 Active Chest 2V [CR] Urgent Exams 07/02/19 19:46 Taken EKG 12 Lead [EK] Stat Ther 07/02/19 19:43 Ordered Labs: Laboratory Tests 07/02/19 07/02/19 07/02/19 Range/Units 19:52 19:52 19:52 WBC 6.9 (4.5-11.0) K/uL RBC 4.62 (3.30-5.50) M/uL Hgb 12.6 (12.0-15.0) g/dL Hct 39.1 (36.0-48.0) % MCV 85 (80-98) fL MCH 27 (27-31) pg MCHC 32 (32-36) % Plt Count 265 (150-400) K/uL Neut % (Auto) 57 (36-66) % Lymph % (Auto) 35 (24-44) % [place] % (Auto) 6 (2-6) % Eos % (Auto) 2 (2-4) % Baso % (Auto) 0 (0-1) % D-Dimer, Quantitative 682 H (0.0-400.0) ng/mL Sodium 142 (140-148) mmol/L Potassium 3.7 (3.6-5.2) mmol/L Chloride 106 (100-108) mmol/L Carbon Dioxide 25 (21-32) mmol/L Anion Gap 10.6 (5.0-14.0) mmol/L BUN 7 (7-18) mg/dL Creatinine 0.7 (0.6-1.0) mg/dL Est Cr Clr Drug Dosing 94.56 mL/min Estimated GFR (MDRD) > 60 (>60) Glucose 83 (74-106) mg/dL Calcium 8.5 (8.5-10.1) mg/dL Troponin I < 0.017 (0.000-0.056) ng/mL NT-Pro-B Natriuret Pep 290 H (5-125) pg/mL Meds: Medications Discontinued Medications Generic Name Dose Route Start Last Admin Trade Name Anu PRN Reason Stop Dose Admin Ketorolac Tromethamine 30 mg 07/02/19 20:37 07/02/19 20:41 Toradol IM 07/02/19 20:38 30 mg ONETIME ONE Administration Lorazepam 1 mg 07/02/19 19:45 07/02/19 19:59 Ativan PO 07/02/19 19:46 1 mg ONETIME ONE Administration Departure - Departure Time of Disposition: 21:20 Disposition: Home, Self-Care 01 Condition: Poor Clinical Impression: Atypical chest pain Instructions: Nonspecific Chest Pain, Adult Referrals: Pily Gupta MD [Primary Care Provider] - Forms: ED Department Discharge Additional Instructions: Try Tylenol for baseline pain control use the tramadol for breakthrough pain, please follow-up with your primary care in the next 3 to 5 days for further evaluation of your passing out event Sepsis Event Note - Evaluation Sepsis Screening Result: No Definite Risk - Focused Exam Vital Signs: Vital Signs Temp Pulse Resp BP Pulse Ox 07/02/19 20:58 61 21 H 101/59 L 96 07/02/19 20:26 19 101/60 99 07/02/19 19:44 16 129/84 99 07/02/19 19:00 97.6 F 64 16 112/68 98 Date Exam was Performed: 07/02/19 Time Exam was Performed: 21:18 - My Orders Last 24 Hours: My Active Orders 07/02/19 19:43 Cardiac Monitoring [RC] .As Directed EKG Documentation Completion [RC] ASDIRECTED EKG 12 Lead [EK] Stat 07/02/19 19:46 Chest 2V [CR] Urgent - Assessment/Plan Last 24 Hours: My Active Orders 07/02/19 19:43 Cardiac Monitoring [RC] .As Directed EKG Documentation Completion [RC] ASDIRECTED EKG 12 Lead [EK] Stat 07/02/19 19:46 Chest 2V [CR] Urgent Plan: Assessment Acuity = acute Site and laterality = atypical chest pain with syncopal event Etiology = unknown Manifestations = none Location of injury = Home Lab values = CBC unremarkable BMP unremarkable d-dimer slightly elevated 682 of unclear significance BNP slightly elevated 290 troponin was negative EKG demonstrates normal sinus rhythm chest x-ray I did review films myself I cannot appreciate any acute process, the official read from radiology is pending Plan She had some improvement with the Toradol provided I did offer her further evaluation which would include a CAT scan she declined would just like to try tramadol for pain medication follow-up with her primary care in the next 3 to 5 days for reevaluation prescription written for 50 mg 1 tab p.o. 3 times daily PRN total #15 This note was dictated using [employer] voice recognition software please call with any questions on syntax or grammar.
[2019-07-02] MEDS ORDERED: Ketorolac 30 MG/ML SDV IM ONE (20:37)
[2019-07-02 20:58] VITALS: BP 101/59; PULSE 61
--- NOTE | 2019-07-03 10:15 | CR ---
CHEST: 2 view CLINICAL HISTORY:SOB COMPARISON:September 2018 FINDINGS: The heart size, pulmonary vascularity and hilar structures are normal. No infiltrate effusion or pneumothorax is seen. IMPRESSION: No acute cardiopulmonary process.
== END 2019-07-02 21:40 | disposition home or self-care (01) ==
LOC: JP.ED 18:40
DX: R55 Syncope and collapse (principal); R07.89 Other chest pain; Z88.8 Allergy status to other drugs, medicaments and biological substances; Z88.5 Allergy status to narcotic agent; Z88.2 Allergy status to sulfonamides; Z79.899 Other long term (current) drug therapy; J45.909 Unspecified asthma, uncomplicated; I45.6 Pre-excitation syndrome; F41.9 Anxiety disorder, unspecified; F32.9 Major depressive disorder, single episode, unspecified; E66.9 Obesity, unspecified; Z68.43 Body mass index [BMI] 50.0-59.9, adult
CPT/HCPCS: 36415; 71046; 80048; 83880; 84484; 85025; 85379; 93005; 96372; 99284; A9270; J1885

== ENCOUNTER 2020-03-03 19:18 | Emergency (ER) | payer MEDICAID ==
--- NOTE | 2020-03-03 19:46 | EDM.PDOC ---
ED HPI GENERAL MEDICAL PROBLEM - General Chief Complaint: Chest Pain Stated Complaint: CHEST PAIN Time Seen by Provider: 03/03/20 19:40 Source of Information: Reports: Patient, Old Records, RN History Limitations: Reports: No Limitations - History of Present Illness INITIAL COMMENTS - FREE TEXT/NARRATIVE: 34 yo female states she has a pHx of WPW and is currently being monitored with a loop recorder. 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 She apparently had tachycardia before arrival that is resolved before entering the ER. Dr. Gupta is her primary care provider. Says she can't always tell when her heart is beating fast. Onset: Today, Sudden Onset Date: 03/03/20 Duration: Minutes:, Resolved Prior to Arrival Location: Reports: Chest Quality: Reports: Other (no pain) Severity: Moderate Improves with: Reports: Other (? time) Worsens with: Reports: Other (unsure) Context: Reports: Other (See HPI) Associated Symptoms: Reports: No Other Symptoms Treatments SAND TESTER: Reports: Other (see below) (none) - Related Data Allergies Allergy/AdvReac Type Severity Reaction Status Date / Time adhesive tape Allergy Blisters Verified 03/03/20 19:36 albuterol Allergy Cannot Verified 03/03/20 19:36 Remember morphine Allergy Swelling Verified 03/03/20 19:36 Sulfa (Sulfonamide Allergy Rash Verified 03/03/20 19:36 Antibiotics) Home Meds: Home Meds Magnesium Oxide [Magnesium] 400 mg PO BEDTIME PRN 02/21/19 [History] traZODone HCl [Trazodone HCl] 25 - 50 mg PO BEDTIME PRN 02/21/19 [History] hydrOXYzine HCL [hydrOXYzine] 25 mg PO TID PRN 02/25/19 [History] Levalbuterol Tartrate [Xopenex HFA] 2 puff IH Q4HR PRN 05/30/19 [History] tiZANidine [Zanaflex] 4 mg PO Q8HR PRN 05/30/19 [History] Vilazodone [Viibryd] 40 mg PO DAILY 06/03/19 [History] Erenumab-Aooe [Aimovig Autoinjector] 140 mg SQ ASDIRECTED 06/05/19 [History] Ascorbic Acid [Vitamin C] 500 mg PO DAILY #0 06/07/19 [Rx] Butalbital/Aspirin/Caffeine [Fiorinal 50-325-40 MG] 1 each PO Q4HR PRN #0 06/07/19 [Rx] Cyanocobalamin (Vitamin B12) [Vitamin B12] 1,000 mcg SL DAILY #0 06/07/19 [Rx] Dicyclomine [Bentyl] 10 mg PO QIDACANDBED #0 06/07/19 [Rx] Ferrous Sulfate [Iron] 325 mg PO DAILY #0 06/07/19 [Rx] Gabapentin [Neurontin] 300 mg PO TID #0 06/07/19 [Rx] Multivitamin [Multiple Vitamins] 1 tab PO DAILY #0 06/07/19 [Rx] Omeprazole 20 mg PO BID #0 06/07/19 [Rx] diphenhydrAMINE [Benadryl] 50 mg PO BEDTIME PRN #0 06/07/19 [Rx] Past Medical History HEENT History: Reports: Impaired Vision, Otitis Media, Other (See Below) Other HEENT History: ear infections Cardiovascular History: Reports: Other (See Below) Other Cardiovascular History: WPW. implanted loop recorder 2010 Respiratory History: Reports: Asthma Gastrointestinal History: Reports: Cholelithiasis, GERD Other Gastrointestinal History: exploratoy lap Genitourinary History: Reports: None CITY CLERK History: Reports: Endometriosis, Polycystic Ovaries, Other CITY CLERK History: ovarian cysts Musculoskeletal History: Reports: Back Pain, Chronic, Fracture, Fibromyalgia Neurological History: Reports: Brain Injury, Concussion, Headaches, Chronic, Migraines Psychiatric History: Reports: Anxiety, Depression Endocrine/Metabolic History: Reports: Obesity/BMI 30+ Hematologic History: Reports: Anemia, B12 Deficiency, Iron Deficiency - Infectious Disease History Infectious Disease History: Reports: Chicken Pox - Past Surgical History HEENT Surgical History: Reports: Adenoidectomy, Tonsillectomy Cardiovascular Surgical History: Reports: Varicose, Other (See Below) Other Cardiovascular Surgeries/Procedures: had an ablation for WPW states "it didn't work" Respiratory Surgical History: Reports: None GI Surgical History: Reports: Bariatric Procedure, Cholecystectomy, Colonoscopy, EGD, Hernia, Abdominal Female Surgical History: Reports: Section, Other (See Below) Other Female Surgeries/Procedures: tubes removed, exploratory surgery for endometriosis Endocrine Surgical History: Reports: None Neurological Surgical History: Reports: None Musculoskeletal Surgical History: Reports: None Social & Family History - Family History Family Medical History: No Pertinent Family History - Tobacco Use Tobacco Use Status *Q: Never Tobacco User - Caffeine Use Caffeine Use: Reports: Coffee, Soda - Recreational Drug Use Recreational Drug Use: No ED ROS GENERAL - Review of Systems Review Of Systems: See Below Constitutional: Reports: No Symptoms HEENT: Reports: No Symptoms Respiratory: Reports: No Symptoms Cardiovascular: Reports: Palpitations (tachycardia) Endocrine: Reports: No Symptoms GI/Abdominal: Reports: No Symptoms : Reports: No Symptoms Musculoskeletal: Reports: No Symptoms Skin: Reports: No Symptoms Neurological: Reports: No Symptoms ED EXAM, GENERAL - Physical Exam Exam: See Below Exam Limited By: No Limitations General Appearance: Alert, WD/WN, No Apparent Distress Eye Exam: Bilateral Eye: Normal Inspection Ears: Normal External Exam, Normal Canal, Hearing Grossly Normal Ear Exam: Bilateral Ear: Auricle Normal, Canal Normal Nose: Normal Inspection, No Blood Throat/Mouth: Normal Inspection, Normal Lips, Normal Oropharynx, Normal Voice, No Airway Compromise Head: Atraumatic, Normocephalic Neck: Normal Inspection Respiratory/Chest: No Respiratory Distress, Lungs Clear, Normal Breath Sounds, No Accessory Muscle Use Cardiovascular: Regular Rate, Rhythm, No Edema GI/Abdominal: Normal Bowel Sounds, Soft, Non-Tender, No Distention Back Exam: Normal Inspection Extremities: Normal Inspection, Normal Range of Motion, Non-Tender, No Pedal Edema Neurological: Alert, Oriented, CN II-XII Intact, Normal Cognition, No Motor/Sensory Deficits Psychiatric: Normal Affect, Normal Mood Skin Exam: Warm, Dry, Intact, Normal Color, No Rash #1 Interpretation EKG Date: 03/03/20 Time: 19:40 Rhythm: NSR Rate (Beats/Min): 71 [place]: Normal P-Wave: Present QRS: Normal ST-T: Normal QT: Normal Comparison: No Change Course - Vital Signs Last Recorded V/S: Last Vital Signs Temp 36.1 C 03/03/20 19:50 Pulse 88 03/03/20 19:50 Resp 19 03/03/20 19:50 BP 132/82 03/03/20 19:50 Pulse Ox 99 03/03/20 19:50 - Orders/Labs/Meds Orders: Active Orders 24 hr Category Date Time Status Cardiac Monitoring [RC] .As Directed Care 03/03/20 19:22 Active EKG Documentation Completion [RC] ASDIRECTED Care 03/03/20 19:23 Active EKG 12 Lead [EK] Routine Ther 03/03/20 19:22 Ordered Departure - Departure Time of Disposition: 20:00 Disposition: Home, Self-Care 01 Condition: Good Clinical Impression: Tachycardia Referrals: Pily Gupta MD [Primary Care Provider] - Forms: ED Department Discharge Additional Instructions: Call your doctor in the morning so your rhythm can be reviewed and recommendations made. Return as needed. Sepsis Event Note (ED) - Focused Exam Vital Signs: Vital Signs Temp Pulse Resp BP Pulse Ox 03/03/20 19:50 36.1 C 88 19 132/82 99 03/03/20 19:46 36.1 C 88 19 132/82 99 - My Orders Last 24 Hours: My Active Orders 03/03/20 19:22 Cardiac Monitoring [RC] .As Directed EKG 12 Lead [EK] Routine 03/03/20 19:23 EKG Documentation Completion [RC] ASDIRECTED - Assessment/Plan Last 24 Hours: My Active Orders 03/03/20 19:22 Cardiac Monitoring [RC] .As Directed EKG 12 Lead [EK] Routine 03/03/20 19:23 EKG Documentation Completion [RC] ASDIRECTED
[2020-03-03 20:07] VITALS: BP 116/76; PULSE 74
== END 2020-03-03 20:28 | disposition home or self-care (01) ==
LOC: JP.ED 19:18
DX: R00.0 Tachycardia, unspecified (principal); J45.909 Unspecified asthma, uncomplicated; K21.9 Gastro-esophageal reflux disease without esophagitis; F41.9 Anxiety disorder, unspecified; F32.9 Major depressive disorder, single episode, unspecified; D64.9 Anemia, unspecified; E66.9 Obesity, unspecified; Z68.41 Body mass index [BMI] 40.0-44.9, adult; Z91.048 Other nonmedicinal substance allergy status; Z88.8 Allergy status to other drugs, medicaments and biological substances; Z88.5 Allergy status to narcotic agent; Z88.2 Allergy status to sulfonamides; Z79.899 Other long term (current) drug therapy
CPT/HCPCS: 93005; 99284-25

== ENCOUNTER 2020-10-30 18:51 | Emergency (ER) | payer MEDICAID ==
[2020-10-30 19:16] VITALS: PULSE 117
--- NOTE | 2020-10-30 19:30 | EDM.PDOC ---
ED HPI GENERAL MEDICAL PROBLEM - General Chief Complaint: Chest Pain Stated Complaint: CHEST PAIN Time Seen by Provider: 10/30/20 19:06 Source of Information: Reports: Patient History Limitations: Reports: No Limitations - History of Present Illness INITIAL COMMENTS - FREE TEXT/NARRATIVE: Papito is a 35-year-old female presenting to the ED with a multitude of complaints including chest pain radiating down the left arm, shortness of breath, cough, and tachycardia. Patient has a history of Sharp Parkinson's White and paroxysmal atrial fibrillation. She has an implantable loop recorder because she was intolerant to external devices. 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 She is not on any medication for rate control because she states her baseline heart rate is too slow. Patient has had previous symptoms when seen by her patient care coordinator, Dr. Santo. Complicating matters that she has a history of a Jacob-en-Y gastric bypass, morbid obesity, deconditioning, and histrionic behavior. She states that she took a dose of her anxiety medicine before coming in but that did not help. She states that the tachycardia has been for the last hour and a half, however, I question the timing of events based on when she took her anxiety medicine. Left Chest Pain Score (Numeric/FACES): 6 - Related Data Allergies Allergy/AdvReac Type Severity Reaction Status Date / Time adhesive tape Allergy Blisters Verified 10/30/20 19:06 albuterol Allergy Cannot Verified 10/30/20 19:06 Remember morphine Allergy Swelling Verified 10/30/20 19:06 Sulfa (Sulfonamide Allergy Rash Verified 10/30/20 19:06 Antibiotics) Home Meds: Home Meds Magnesium Oxide [Magnesium] 400 mg PO BEDTIME PRN 02/21/19 [History] traZODone HCl [Trazodone HCl] 25 - 50 mg PO BEDTIME PRN 02/21/19 [History] hydrOXYzine HCL [hydrOXYzine] 25 mg PO TID PRN 02/25/19 [History] Levalbuterol Tartrate [Xopenex HFA] 2 puff IH Q4HR PRN 05/30/19 [History] tiZANidine [Zanaflex] 4 mg PO Q8HR PRN 05/30/19 [History] Vilazodone [Viibryd] 40 mg PO DAILY 06/03/19 [History] Erenumab-Aooe [Aimovig Autoinjector] 140 mg SQ ASDIRECTED 06/05/19 [History] Butalbital/Aspirin/Caffeine [Fiorinal 50-325-40 MG] 1 each PO Q4HR PRN #0 06/07/19 [Rx] Cyanocobalamin (Vitamin B12) [Vitamin B12] 1,000 mcg SL DAILY #0 06/07/19 [Rx] Ferrous Sulfate [Iron] 325 mg PO DAILY #0 06/07/19 [Rx] Multivitamin [Multiple Vitamins] 1 tab PO DAILY #0 06/07/19 [Rx] Cetirizine [ZyrTEC] 10 mg PO DAILY 03/03/20 [History] Pantoprazole Sodium [Protonix] 40 mg PO DAILY 03/03/20 [History] Ubrogepant [Ubrelvy] 100 mg PO ASDIRECTED PRN 03/03/20 [History] Acetaminophen/HYDROcodone [HYDROcodone-Acetaminophen 5-325 MG *] 1 tab PO BID PRN 10/30/20 [History] Past Medical History HEENT History: Reports: Impaired Vision, Otitis Media, Other (See Below) Other HEENT History: ear infections Cardiovascular History: Reports: Other (See Below) Other Cardiovascular History: WPW. implanted loop recorder 2010 Respiratory History: Reports: Asthma Gastrointestinal History: Reports: Cholelithiasis, GERD Other Gastrointestinal History: exploratoy lap Genitourinary History: Reports: None PLASTIC INJECTION MOLD MAKER History: Reports: Endometriosis, Polycystic Ovaries, Other PLASTIC INJECTION MOLD MAKER History: ovarian cysts Musculoskeletal History: Reports: Back Pain, Chronic, Fracture, Fibromyalgia Neurological History: Reports: Brain Injury, Concussion, Headaches, Chronic, Migraines Psychiatric History: Reports: Anxiety, Depression Endocrine/Metabolic History: Reports: Obesity/BMI 30+ Hematologic History: Reports: Anemia, B12 Deficiency, Iron Deficiency - Infectious Disease History Infectious Disease History: Reports: Chicken Pox - Past Surgical History HEENT Surgical History: Reports: Adenoidectomy, Tonsillectomy Cardiovascular Surgical History: Reports: Varicose, Other (See Below) Other Cardiovascular Surgeries/Procedures: had an ablation for WPW states "it didn't work" Respiratory Surgical History: Reports: None GI Surgical History: Reports: Bariatric Procedure, Cholecystectomy, Colonoscopy, EGD, Hernia, Abdominal Female Surgical History: Reports: Section, Other (See Below) Other Female Surgeries/Procedures: tubes removed, exploratory surgery for endometriosis Musculoskeletal Surgical History: Reports: None Social & Family History - Family History Family Medical History: No Pertinent Family History - Tobacco Use Tobacco Use Status *Q: Never Tobacco User - Caffeine Use Caffeine Use: Reports: Coffee - Recreational Drug Use Recreational Drug Use: No ED ROS GENERAL - Review of Systems Review Of Systems: See Below Constitutional: Reports: No Symptoms. Denies: Diaphoresis HEENT: Reports: No Symptoms Respiratory: Reports: Shortness of Breath, Cough. Denies: Sputum Cardiovascular: Reports: Chest Pain (Sharp, stabbing chest pain with pain radiating down the left arm.), Palpitations (Tachycardia) Endocrine: Reports: No Symptoms GI/Abdominal: Reports: No Symptoms. Denies: Nausea, Vomiting : Reports: No Symptoms Musculoskeletal: Reports: No Symptoms Skin: Reports: No Symptoms Neurological: Reports: No Symptoms Psychiatric: Reports: Anxiety Hematologic/Lymphatic: Reports: No Symptoms Immunologic: Reports: No Symptoms ED EXAM, GENERAL - Physical Exam Exam: See Below Exam Limited By: No Limitations General Appearance: Alert, No Apparent Distress, Anxious, Obese Eye Exam: Bilateral Eye: EOMI, PERRL Throat/Mouth: Normal Inspection, Normal Oropharynx, Normal Voice, No Airway Compromise Head: Atraumatic, Normocephalic Neck: Normal Inspection, Supple, Non-Tender, Full Range of Motion Respiratory/Chest: No Respiratory Distress, Lungs Clear, Normal Breath Sounds. No: Crackles, Rales, Rhonchi Cardiovascular: Normal Peripheral Pulses, Regular Rate, Rhythm, No Murmur, Tachycardia Peripheral Pulses: 2+: Radial (L), Radial (R), Posterior Tibial (L), Posterior Tibial (R) GI/Abdominal: Normal Bowel Sounds, Soft, Non-Tender Extremities: Normal Inspection, No Pedal Edema Neurological: Alert, Oriented, Normal Cognition, No Motor/Sensory Deficits Psychiatric: Normal Affect, Anxious Skin Exam: Warm, Dry, Intact, Normal Color. No: Diaphoretic Lymphatic: No Adenopathy #1 Interpretation EKG Date: 10/30/20 Time: 19:27 Rhythm: NSR Rate (Beats/Min): 101 [place]: Normal P-Wave: Present QRS: Normal ST-T: Normal QT: Normal Comparison: Change From Previous EKG (Sinus tachycardia has replaced normal sinus rhythm, otherwise no acute changes when compared to EKG done on 02/22/2020.) Course - Vital Signs Last Recorded V/S: Last Vital Signs Temp 36.9 C 10/30/20 19:15 Pulse 117 H 10/30/20 19:15 Resp 16 10/30/20 20:28 BP 114/72 10/30/20 20:28 Pulse Ox 98 10/30/20 20:28 - Orders/Labs/Meds Orders: Active Orders 24 hr Category Date Time Status Iopamidol [Isovue-370 (76%)] Med 10/30/20 20:30 Active 100 ml IV . DIRECTED Sodium Chloride 0.9% [Normal Saline] 100 ml Med 10/30/20 20:30 Active IV ASDIRECTED Sodium Chloride 0.9% [Saline Flush] Med 10/30/20 20:18 Active 10 ml FLUSH ASDIRECTED PRN Saline Lock Insert [OM.PC] Routine Oth 10/30/20 20:18 Ordered EKG 12 Lead [EK] Routine Ther 10/30/20 19:08 Ordered Medication Orders Sodium Chloride (Normal Saline) 100 mls @ 4 mls/sec IV ASDIRECTED SAMEERA Last Admin: 10/30/20 20:48 Dose: 4 mls/sec Documented by: MERE Iopamidol (Iopamidol 755 Mg/Ml 100 Ml Bottle) 100 ml IV . DIRECTED SAMEERA Last Admin: 10/30/20 20:48 Dose: 100 ml Documented by: MERE Sodium Chloride (Sodium Chloride 0.9% 10 Ml Syringe) 10 ml FLUSH ASDIRECTED PRN PRN Reason: Keep Vein Open Last Admin: 10/30/20 20:48 Dose: 10 ml Documented by: MERE Labs: Laboratory Tests 10/30/20 10/30/20 10/30/20 Range/Units 19:27 19:27 19:27 WBC 10.4 (4.5-11.0) K/uL RBC 3.83 (3.30-5.50) M/uL Hgb 10.8 L (12.0-15.0) g/dL Hct 32.7 L (36.0-48.0) % MCV 85 (80-98) fL MCH 28 (27-31) pg MCHC 33 (32-36) % Plt Count 278 (150-400) K/uL Neut % (Auto) 63.7 (36-66) % Lymph % (Auto) 29.8 (24-44) % [place] % (Auto) 5.0 (2-6) % Eos % (Auto) 1.2 L (2-4) % Baso % (Auto) 0.3 (0-1) % D-Dimer, Quantitative (0.0-500.0) ng/mL Sodium 141 (140-148) mmol/L Potassium 3.7 (3.6-5.2) mmol/L Chloride 106 (100-108) mmol/L Carbon Dioxide 26 (21-32) mmol/L Anion Gap 9.4 (5.0-14.0) mmol/L BUN 16 D (7-18) mg/dL Creatinine 0.8 (0.6-1.0) mg/dL Est Cr Clr Drug Dosing 81.19 mL/min Estimated GFR (MDRD) > 60 (>60) Glucose 86 (74-106) mg/dL Calcium 8.4 L (8.5-10.1) mg/dL Total Bilirubin 0.3 (0.2-1.0) mg/dL AST 35 (15-37) U/L ALT 47 (12-78) U/L Alkaline Phosphatase 69 (46-116) U/L Troponin I < 0.017 (0.000-0.056) ng/mL C-Reactive Protein 0.80 H (0.0-0.3) mg/dL Total Protein 6.6 (6.4-8.2) g/dL Albumin 3.4 (3.4-5.0) g/dL Globulin 3.2 (2.3-3.5) g/dL Albumin/Globulin Ratio 1.1 L (1.2-2.2) TSH, Ultra Sensitive 1.468 (0.358-3.740) uIU/mL SARS CoV-2 RNA Rapid KIM 10/30/20 10/30/20 Range/Units 19:34 19:42 WBC (4.5-11.0) K/uL RBC (3.30-5.50) M/uL Hgb (12.0-15.0) g/dL Hct (36.0-48.0) % MCV (80-98) fL MCH (27-31) pg MCHC (32-36) % Plt Count (150-400) K/uL Neut % (Auto) (36-66) % Lymph % (Auto) (24-44) % [place] % (Auto) (2-6) % Eos % (Auto) (2-4) % Baso % (Auto) (0-1) % D-Dimer, Quantitative 536.60 H (0.0-500.0) ng/mL Sodium (140-148) mmol/L Potassium (3.6-5.2) mmol/L Chloride (100-108) mmol/L Carbon Dioxide (21-32) mmol/L Anion Gap (5.0-14.0) mmol/L BUN (7-18) mg/dL Creatinine (0.6-1.0) mg/dL Est Cr Clr Drug Dosing mL/min Estimated GFR (MDRD) (>60) Glucose (74-106) mg/dL Calcium (8.5-10.1) mg/dL Total Bilirubin (0.2-1.0) mg/dL AST (15-37) U/L ALT (12-78) U/L Alkaline Phosphatase (46-116) U/L Troponin I (0.000-0.056) ng/mL C-Reactive Protein (0.0-0.3) mg/dL Total Protein (6.4-8.2) g/dL Albumin (3.4-5.0) g/dL Globulin (2.3-3.5) g/dL Albumin/Globulin Ratio (1.2-2.2) TSH, Ultra Sensitive (0.358-3.740) uIU/mL SARS CoV-2 RNA Rapid KIM Negative Meds: Medications Generic Name Dose Route Start Last Admin Trade Name Freq PRN Reason Stop Dose Admin Sodium Chloride 100 mls @ 4 mls/sec 10/30/20 20:30 10/30/20 20:48 Normal Saline IV 4 mls/sec ASDIRECTED SAMEERA Administration Iopamidol 100 ml 10/30/20 20:30 10/30/20 20:48 Iopamidol 755 Mg/Ml 100 Ml Bottle IV 100 ml . DIRECTED SAMEERA Administration Sodium Chloride 10 ml 10/30/20 20:18 10/30/20 20:48 Sodium Chloride 0.9% 10 Ml Syringe FLUSH 10 ml ASDIRECTED PRN Administration Keep Vein Open - Radiology Interpretation Free Text/Narrative:: I reviewed the images of the CT angiogram of the chest as well as the report. There is no evidence for acute pulmonary emboli. There is no acute intrathoracic abnormalities noted. - Re-Assessments/Exams Free Text/Narrative Re-Assessment/Exam: 10/30/20 21:22 reviewed the patient's labs showing a normal CBC, comprehensive metabolic panel, Covid, but she does have elevation in her CRP at 0.80 and her D-dimer at 536. Proceed with a CT angiogram of the chest to evaluate for pulmonary emboli as she has a strong family history for blood clots. CT angiogram was unremarkable for any acute intrathoracic abnormalities including pulmonary emboli, mass, or infiltrates. I encouraged the patient to contact her patient care coordinator to discuss maybe the use of a beta-dc to rate control her. I do not want to start this in the ED because she has a history for having a low basal heart rate. Her patient care coordinator is certainly better versed that her health conditions and can make a better judgment on whether beta-blockade would be advantageous given her WPW. The patient tells me that she is scheduled to follow-up with [facility] but will talk with her patient care coordinator, Dr. Santo. At this time, I believe she is suitable for discharge in satisfactory condition. I reassured her that other labs were unremarkable. Indications return to the ED were discussed. Departure - Departure Time of Disposition: 21:24 Disposition: Home, Self-Care 01 Clinical Impression: Sinus tachycardia, Qhyoc-Hxozfuakc-Vwmga syndrome, Atypical chest pain, History of Jacob-en-Y gastric bypass Instructions: Nonspecific Chest Pain, Adult, Wvjz-ki-Xrul, Cnvfh-Farxmfwou-Ujzjv Syndrome, Sinus Tachycardia Referrals: Pily Gupta MD [Primary Care Provider] - Forms: ED Department Discharge Care Plan Goals: Follow-up with your patient care coordinator to discuss possible use of beta-blockade to rate control your tachycardia. Sepsis Event Note (ED) - Evaluation Sepsis Screening Result: No Definite Risk - Focused Exam Vital Signs: Vital Signs Temp Pulse Resp BP Pulse Ox 10/30/20 20:28 16 114/72 98 10/30/20 19:56 20 121/69 99 10/30/20 19:15 36.9 C 117 H 16 125/89 100 - Problem List & Annotations (1) Atypical chest pain SNOMED Code(s): 442498590 Code(s): R07.89 - OTHER CHEST PAIN Status: Chronic Priority: Medium Current Visit: Yes (2) History of Jacob-en-Y gastric bypass SNOMED Code(s): 359895825 Code(s): Z98.84 - BARIATRIC SURGERY STATUS Status: Chronic Priority: Medium Current Visit: Yes (3) Sinus tachycardia SNOMED Code(s): 47033543 Code(s): R00.0 - TACHYCARDIA, UNSPECIFIED Status: Chronic Priority: Medium Current Visit: Yes (4) Otgtl-Xfyvjnsmf-Dagqk syndrome SNOMED Code(s): 41320715 Code(s): 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 DIRECTED Sodium Chloride 0.9% [Normal Saline] 100 ml IV ASDIRECTED - Assessment/Plan Last 24 Hours: My Active Orders 10/30/20 19:08 EKG 12 Lead [EK] Routine 10/30/20 20:18 Sodium Chloride 0.9% [Saline Flush] 10 ml FLUSH ASDIRECTED PRN Saline Lock Insert [OM.PC] Routine 10/30/20 20:30 Iopamidol [Isovue-370 (76%)] 100 ml IV . DIRECTED Sodium Chloride 0.9% [Normal Saline] 100 ml IV ASDIRECTED
[2020-10-30] MEDS ORDERED: Sodium Chloride 0.9% 10 ML Syringe FLUSH PRN (20:18)
[2020-10-30 20:29] VITALS: BP 114/72
[2020-10-30] MEDS ORDERED: Sodium Chloride 0.9% 100 ML IV SCH (20:30)
[2020-10-30] MEDS ORDERED: Iopamidol 755 Mg/ML 100 ML Bottle IV SCH (20:30)
--- NOTE | 2020-10-30 21:09 | CRLCT ---
For Patients: As a result of the Century Cures Act, medical imaging exams and procedure reports are released immediately into your electronic medical record. You may view this report before your referring provider. If you have questions, please contact your health care provider. HISTORY: Chest pain. Tachycardia. Elevated D-dimer. TECHNIQUE: CT chest with IV contrast, pulmonary embolism protocol. 100 mL Isovue-370 IV. COMPARISON: CT chest 07/04/2019. FINDINGS: Pulmonary arteries: No pulmonary embolism. Main pulmonary artery is normal caliber. Lungs: Central airways are patent. No airspace consolidation. Minimal atelectasis in the lingula. No pleural effusion or pneumothorax. Mediastinum: Thoracic aorta is normal caliber. No pericardial effusion. Lymph nodes: No lymphadenopathy. Musculoskeletal and chest wall: Implanted loop recorder in the anterior chest wall. No acute findings. Upper abdomen: Jacob-en-Y gastric bypass. Cholecystectomy. IMPRESSION: 1. No pulmonary embolism. 2. No significant pulmonary abnormality. Please note that all CT scans at this facility use dose modulation, iterative reconstruction, and/or weight-based dosing when appropriate to reduce radiation dose to as low as reasonably achievable. Dictated by: Arash Fowler MD @ 10/30/2020 21:08:36 (Electronically Signed)
== END 2020-10-30 21:37 | disposition home or self-care (01) ==
LOC: JP.ED 18:51
DX: I45.6 Pre-excitation syndrome (principal); R07.89 Other chest pain; R00.0 Tachycardia, unspecified; J45.909 Unspecified asthma, uncomplicated; K21.9 Gastro-esophageal reflux disease without esophagitis; E66.9 Obesity, unspecified; Z68.41 Body mass index [BMI] 40.0-44.9, adult; Z91.048 Other nonmedicinal substance allergy status; Z88.8 Allergy status to other drugs, medicaments and biological substances; Z88.5 Allergy status to narcotic agent; Z88.2 Allergy status to sulfonamides; Z79.899 Other long term (current) drug therapy; Z20.822 Contact with and (suspected) exposure to COVID-19
CPT/HCPCS: 36415; 71275; 80053; 84443; 84484; 85025; 85379; 86140; 87635; 93005; 99285; Q9967; U0002

== ENCOUNTER 2021-03-18 10:20 | Emergency (ER) | payer MEDICAID ==
[2021-03-18 10:33] VITALS: BP 141/90; PULSE 87
== END 2021-03-18 11:13 | disposition home or self-care (01) ==
LOC: JP.ED 10:20
DX: G89.29 Other chronic pain (principal); M54.50 Low back pain, unspecified; K21.9 Gastro-esophageal reflux disease without esophagitis; E66.9 Obesity, unspecified; Z68.42 Body mass index [BMI] 45.0-49.9, adult; Z91.048 Other nonmedicinal substance allergy status; Z88.5 Allergy status to narcotic agent; Z88.8 Allergy status to other drugs, medicaments and biological substances; Z88.2 Allergy status to sulfonamides; Z79.899 Other long term (current) drug therapy
CPT/HCPCS: 99283

== ENCOUNTER 2024-09-19 15:20 | Emergency (ER) | payer MEDICAID ==
[2024-09-19 17:53] LABS: APPEARANCE,URINE CLEAR (CLEAR); GLUCOSE,URINE 500 mg/dL (NEGATIVE); OCCULT BLOOD,URINE NEGATIVE (NEGATIVE)
[2024-09-19 17:59] LABS: EPITHELIAL CELLS,URINE RARE
[2024-09-19] MEDS: Potassium Chloride 20 MEQ Tab.ER PO ONE ×2 (18:05→19:12)
[2024-09-19] MEDS: Sodium Chloride 0.9% 10 ML Syringe FLUSH ONE (18:45)
[2024-09-19] MEDS: Iopamidol 612 MG/ML 100 ML Bottle IV ONE (18:45)
[2024-09-19 20:28] VITALS: BP 110/69; PULSE 100
[2024-09-19 20:32] LABS: BLOOD UREA NITROGEN,BUN 5.0 mg/dL (7-18); CARBON DIOXIDE,CO2 28.0 mmol/L (21-32); CHLORIDE,CL 102.0 mmol/L (100-108); CREATININE 0.6 mg/dL (0.6-1.0); EST CRCL DRUG DOSING (CG) 104.13 mL/min; ESTIMATED GFR 117.0 mL/min (>60); GLUCOSE RANDOM 88.0 mg/dL (74-106); POTASSIUM,K 3.0 mmol/L (3.6-5.2); SODIUM,NA 137.0 mmol/L (140-148)
[2024-09-26 07:44] LABS: OVA AND PARASITE,FECAL INTERP Negative (Negative)
== END 2024-09-19 21:20 | disposition home or self-care (01) ==
LOC: JP.ED 15:20
DX: A04.72 Enterocolitis due to Clostridium difficile, not specified as recurrent (principal); Z85.05 Personal history of malignant neoplasm of liver; E66.9 Obesity, unspecified; Z88.2 Allergy status to sulfonamides; Z88.5 Allergy status to narcotic agent; Z88.8 Allergy status to other drugs, medicaments and biological substances; Z91.048 Other nonmedicinal substance allergy status; Z79.899 Other long term (current) drug therapy; Z90.49 Acquired absence of other specified parts of digestive tract; Z87.891 Personal history of nicotine dependence; Z68.35 Body mass index [BMI] 35.0-35.9, adult
CPT/HCPCS: 36415; 74177; 80048; 81001; 83735; 87046; 87177; 87209; 87427; 87493; 96365; 99285; A9270; J3480; J7050; Q9967